=== PATIENT | male | born 1945 | race Two or more races ===

== ENCOUNTER 2019-03-04 08:15 | Inpatient (IN) | payer OTHER ==
[~2019-03-04] VITALS: Ht 177.8 cm; Wt 102.1 kg
[~2019-03-04 08:15] MED LIST: DOLOGEN CAPLET1 EACH PO; DUI500 PO; OXYC1TAB9 PO; VOLTAREN-XR100 MG PO
[2019-03-04] MEDS ORDERED: ASPIR 8181 MG (10:03)
[2019-03-11] MEDS ORDERED: XARELTO10 MG PO (06:21)
[2019-03-11] MEDS ORDERED: INTEGRA PLUS C1 EACH PO (06:21)
[2019-03-11] MEDS ORDERED: CODE1TAB37 PO (06:21)
== END 2019-03-11 13:26 | disposition home or self-care (01) | DRG 470 ==
LOC: SURH 03-08 08:15 → O/R 03-08 14:36 → SURH 03-08 14:36
PROVIDERS: ADMIT Orthopaedic Surgery Sports Medicine
PROC: 0SRR0JZ Replacement of Right Hip Joint, Femoral Surface with Synthetic Substitute, Open Approach (ICD-10-PCS; principal; 2019-03-08 11:00)
PROC: B54DZZZ Ultrasonography of Bilateral Lower Extremity Veins (ICD-10-PCS; 2019-03-10)
DX: M16.11 Unilateral primary osteoarthritis, right hip (principal); I82.4Z3 Acute embolism and thrombosis of unspecified deep veins of distal lower extremity, bilateral

== ENCOUNTER 2023-11-05 08:00 | Inpatient (IN) | payer OTHER ==
[~2023-11-05] VITALS: Ht 170.2 cm; Wt 64.4 kg
[~2023-11-05 08:00] MED LIST changes: +ASPIR 8181 MG; +CODE1TAB37 PO; +INTEGRA PLUS C1 EACH PO; +XARELTO10 MG PO
[2023-11-05 09:32] LABS: HEMATOCRIT 44.5 % (39.0-48.0); HEMOGLOBIN 15.1 g/dL (13-16.00); MEAN CELL VOLUME 92.5 fL (80.0-100.00); MEAN CORPUSCULAR HEMOGLOBIN 31.5 pg (27.00-32.0); PLATELET COUNT 189 K/uL (150-450); RED BLOOD COUNT 4.81 M/uL (4.00-6.00); RED CELL DISTRIBUTION WIDTH 13.4 % (11.5-14.5)
[2023-11-05 09:45] LABS: URINE APPEARANCE Clear; URINE BILIRRUBIN Negative (NEGATIVE); URINE BLOOD Negative; URINE COLOR Yellow; URINE GLUCOSE Negative (NEGATIVE); URINE LEUKOCYTE Negative; URINE NITRATE Negative; URINE PROTEIN Negative (NEGATIVE); URINE UROBILINOGEN 0.2 E.U./dl
[2023-11-05 10:06] LABS: URINE BACTERIA 1.2 uL (0.0-1933); URINE EPITHELIAL CELLS 0.4 uL (0.0-38.8)
[2023-11-05 10:07] LABS: INR 1.04; PARTIAL THROMBOPLASTIN TIME 25.4 SECONDS (22.0-34.0); PROTHROMBIN TIME 10.9 SECONDS (9.0-11.5)
[2023-11-05 10:11] LABS: ALBUMIN 4.1 gm/dL (3.4-5.0); BILIRUBIN TOTAL 0.61 mg/dL (0.3-1.2); CALCIUM 10.2 mg/dL (8.5-10.1); CREATININE SERUM 1.15 mg/dL (0.70-1.30); GFR 61.5; GLOBULINA 3.6 G/DL (2.4-3.5); POTASSIUM 4.95 mEq/L (3.5-5.1); TOTAL PROTEIN 7.7 gm/dL (6.4-8.2)
[2023-11-10] MEDS ORDERED: DICLOFENAC SODI75 MG (08:01)
[2023-11-10] MEDS ORDERED: CEFAZOLIN SODIUM 1,000 MG VIAL ONE (09:37)
[2023-11-10] MEDS ORDERED: CEFOXITIN SODIUM 2,000 MG VIAL IV ONE (10:02)
[2023-11-10] MEDS ORDERED: TRANEXAMIC ACID 100MG/1ML (1000MG) AMPUL IV ONE (10:02)
[2023-11-10] MEDS ORDERED: METHYLPREDNISOLONE ACETATE 80 MG/ML VIAL ONE (12:10)
[2023-11-10] MEDS ORDERED: KETOROLAC TROMETHAMINE 60 MG VIAL IM ONE (12:10)
[2023-11-10] MEDS ORDERED: ENALAPRILAT DIHYDRATE 2.5 MG/2 ML VIAL IV ONE (15:51)
[2023-11-10 17:33] LABS: HEMATOCRIT 42.5 % (39.0-48.0); HEMOGLOBIN 14.3 g/dL (13-16.00); MEAN CELL VOLUME 91.5 fL (80.0-100.00); MEAN CORPUSCULAR HEMOGLOBIN 30.7 pg (27.00-32.0); MEAN CORPUSCULAR HGB CONC 33.5 g/dl (32.0-36.0); PLATELET COUNT 166 K/uL (150-450); RED BLOOD COUNT 4.64 M/uL (4.00-6.00); RED CELL DISTRIBUTION WIDTH 13.6 % (11.5-14.5)
[2023-11-10] MEDS ORDERED: SODIUM CHLORIDE 0.45 % 1,000 ML IV SCH (19:00)
[2023-11-10] MEDS ORDERED: ONDANSETRON HCL 2 MG/ML VIAL IV PRN (19:15)
[2023-11-10] MEDS ORDERED: MORPHINE SULFATE 4 MG/ML VIAL IV PRN (19:30)
[2023-11-10] MEDS ORDERED: GENTAMICIN SULFATE 40 MG/ML VIAL IV SCH (21:00)
[2023-11-11] MEDS ORDERED: CEFAZOLIN SODIUM 1,000 MG VIAL IV SCH
[2023-11-11 06:47] LABS: MEAN CELL VOLUME 91.1 fL (80.0-100.00); MEAN CORPUSCULAR HEMOGLOBIN 31.2 pg (27.00-32.0); MEAN CORPUSCULAR HGB CONC 34.2 g/dl (32.0-36.0); PLATELET COUNT 182 K/uL (150-450); RED BLOOD COUNT 4.51 M/uL (4.00-6.00); RED CELL DISTRIBUTION WIDTH 13.6 % (11.5-14.5)
[2023-11-11] MEDS ORDERED: OxyCODONE HCL/APAP UD (PERCOCET) PO PRN (08:15)
[2023-11-11] MEDS ORDERED: RIVAROXABAN 10 MG TAB PO SCH (09:00)
[2023-11-11] MEDS ORDERED: OxyCODONE HCL ER 10MG TAB (OxyCONTIN) PO SCH (09:00)
[2023-11-11] MEDS ORDERED: IRON/V.C/V.B12/FOLIC A/VIT. E 1 CAPL CAPLET PO SCH (09:00)
[2023-11-11] MEDS ORDERED: SENNA/DOCUSATE SODIUM 1 TAB TABLET PO SCH (09:00)
[2023-11-11] MEDS ORDERED: BACITRACIN 28.35 GM OINT.TUBE TOP SCH (09:00)
[2023-11-12] MEDS ORDERED: OXYC1TAB9 PO (06:30)
[2023-11-12] MEDS ORDERED: BACTRIM DS TAB1 EACH PO (06:30)
[2023-11-12] MEDS ORDERED: INTEGRA PLUS C1 EACH PO (06:30)
[2023-11-12] MEDS ORDERED: XARELTO10 MG PO (06:30)
[2023-11-12 06:52] LABS: HEMATOCRIT 37.8 % (39.0-48.0); HEMOGLOBIN 12.7 g/dL (13-16.00); MEAN CELL VOLUME 92.7 fL (80.0-100.00); MEAN CORPUSCULAR HEMOGLOBIN 31.1 pg (27.00-32.0); MEAN CORPUSCULAR HGB CONC 33.5 g/dl (32.0-36.0); PLATELET COUNT 174 K/uL (150-450); RED BLOOD COUNT 4.08 M/uL (4.00-6.00); RED CELL DISTRIBUTION WIDTH 13.4 % (11.5-14.5)
== END 2023-11-12 14:18 | DRG 470 ==
LOC: O/R 11-10 05:10 → SURG 11-10 05:10
PROVIDERS: ADMIT Orthopaedic Surgery Sports Medicine; ATTEND Orthopaedic Surgery Sports Medicine
PROC: 0SRD0J9 Replacement of Left Knee Joint with Synthetic Substitute, Cemented, Open Approach (ICD-10-PCS; principal; 2023-11-10)
DX: M17.12 Unilateral primary osteoarthritis, left knee (principal)

== ENCOUNTER 2025-08-15 06:00 | Day surgery (SDC) | payer OTHER ==
[2025-08-08 08:39] LABS: BASO % 1.1 % (0.1-1.2); EOS # 0.16 (0.04-0.54); EOS % 3.6 % (0.7-7.0); LYMPH # 1.91 (1.18-3.74); LYMPH % 43.0 % (19.3-53.1); MEAN PLATELET VOLUME 10.70 fl (9.4-12.4); MONO # 0.60 (0.24-0.82); NEUT # 1.71 (1.56-6.13); NEUT % 38.6 % (34.0-71.1); RED CELL DISTRIBUTION WIDTH 13.0 % (11.6-14.4); URINE APPEARANCE Clear; URINE BILIRRUBIN Negative (NEGATIVE); URINE BLOOD Negative; URINE COLOR Yellow; URINE GLUCOSE Negative (NEGATIVE); URINE KETONE Negative (NEGATIVE); URINE LEUKOCYTE Negative; URINE NITRATE Negative; URINE PROTEIN Negative (NEGATIVE); URINE UROBILINOGEN 0.2 E.U./dl
[2025-08-08 08:51] LABS: MONO % 13.5 % (4.7-12.5)
[2025-08-08 08:58] LABS: URINE BACTERIA 0 uL (0.0-1933); URINE CAST 0.00 uL (0.0-1.40); URINE EPITHELIAL CELLS 0.6 uL (0.0-38.8); URINE RBC 1.3 uL (0.0-20.8); URINE WBC 0.6 uL (0.0-23.2)
[2025-08-08 09:02] LABS: INR 1.0
[2025-08-08 09:13] LABS: ALT/SGPT 25.0 U/L (12-78); AST/SGOT 19.0 U/L (15-37); BILIRUBIN TOTAL 0.49 mg/dL (0.3-1.2); BUN CREA RATIO 17.0 (7.0-25.0); CREATININE SERUM 1.08 mg/dL (0.70-1.30); GFR 65.78; GLOBULINA 3.9 G/DL (2.4-3.5); GLUCOSE FASTING 107.0 mg/dL (65-100); OSMOLALITY SERUM 285.0 MOSM/KG (275-295)
[2025-08-08 09:14] VITALS: BP 180/90
[~2025-08-15] VITALS: Ht 170.2 cm; Wt 65.3 kg
[~2025-08-15 06:00] MED LIST changes: +BACTRIM DS TAB1 EACH PO; +BETIMOL5 M2; +DICLOFENAC SODI75 MG; +ROSUVASTATIN CAL5 MG; +VOLTAREN ARTHRI20 GM; +ZESTRIL5 MG
[2025-08-15] MEDS ORDERED: CEFAZOLIN SODIUM 1,000 MG VIAL ONE ×2 (06:14→12:28)
[2025-08-15] MEDS ORDERED: LIDOCAINE HCL 1%/EPINEPHRINE 20ML VIAL IJ ONE (07:37)
[2025-08-15] MEDS ORDERED: BUPIVACAINE HCL/MPF 0.5% 30ML VIAL ONE (07:37)
[2025-08-15] MEDS ORDERED: KETOROLAC TROMETHAMINE 60 MG VIAL IM ONE (07:37)
[2025-08-15] MEDS ORDERED: POVIDONE-IODINE 118 ML BOTT TOP ONE (07:51)
[2025-08-15] MEDS ORDERED: SUGAMMADEX SODIUM 200 MG/2 ML VIAL IV ONE (10:07)
[2025-08-15] MEDS ORDERED: hydrALAZINE HCL 20 MG VIAL ONE (10:08)
[2025-08-15] MEDS ORDERED: CEFADROXIL 500 MG CAPSULE PO SCH (11:48)
[2025-08-15] MEDS ORDERED: DUI500 PO (11:55)
[2025-08-15] MEDS ORDERED: ACETAMINOPHEN-1 EAC2 PO (11:56)
[2025-08-15] MEDS ORDERED: ACETAMINOPHEN WITH CODEINE 1 UDTAB TABLET PO PRN (12:00)
[2025-08-15] MEDS ORDERED: CEFAZOLIN SODIUM 1,000 MG VIAL IV ONE (12:00)
[2025-08-15 21:43] VITALS: BP 135/58; O2SAT 100
== END 2025-08-15 14:05 | disposition home or self-care (01) ==
LOC: CIR.AMB 06:00
PROVIDERS: ATTEND Orthopaedic Surgery Sports Medicine
DX: S46.312A Strain of muscle, fascia and tendon of triceps, left arm, initial encounter (principal)